=== PATIENT | female | born 1930 | race Caucasian/White ===

== ENCOUNTER → 2017-02-26 | Outpatient (CLI) | payer OTHER | LOC: BMCIMAGING 15:01 | PROVIDERS: ATTEND Internal Medicine | DX: J98.4 Other disorders of lung (principal); R05 Cough ==

== ENCOUNTER → 2017-11-20 | Outpatient (CLI) | payer OTHER | LOC: BRMIMAGING 13:57 | PROVIDERS: ATTEND Internal Medicine | DX: E04.9 Nontoxic goiter, unspecified (principal) ==